=== PATIENT | female | born 1985 | race African-American/Black ===

== ENCOUNTER 2020-09-09 22:08 | Emergency (ER) | payer OTHER ==
[2020-09-09] MEDS ORDERED: Ketorolac Tromethamine 30 MG/ML VIAL ONE (22:49)
== END 2020-09-09 23:17 | disposition home or self-care (01) ==
LOC: CSHERS 22:08
DX: S93.402A Sprain of unspecified ligament of left ankle, initial encounter (principal); X58.XXXA Exposure to other specified factors, initial encounter
CPT/HCPCS: 96372; J1885

== ENCOUNTER 2022-01-17 19:28 | Emergency (ER) | payer OTHER ==
[2022-01-17] MEDS ORDERED: Ketorolac Tromethamine 30 MG/ML VIAL ONE (20:47)
== END 2022-01-17 21:57 | disposition home or self-care (01) ==
LOC: CSHERS 19:28
DX: M65.4 Radial styloid tenosynovitis [de Quervain] (principal); Z79.899 Other long term (current) drug therapy
CPT/HCPCS: 96372; J1885